=== PATIENT | male | born 1945 | race Caucasian/White ===

== ENCOUNTER 2023-02-08 11:44 | Emergency (ER) | payer MEDICARE, OTHER ==
[2023-02-08] MEDS ORDERED: HYDROcodone/Acetaminophen 5/325 mg Tablet ONE ×2 (12:26→17:50)
[2023-02-08 12:38] LABS: #Basophils 0.1 thou/uL (0.0-0.2); #Eosinphils 0.5 thou/uL (0.0-0.7); #Lymphocytes 2.2 thou/uL (1.20-3.40); #Monocytes 0.9 thou/uL (0.11-0.59); %Basophils 1.4 % (0.0-1.0); %Monocytes 9.3 % (0.0-10.0); %Neutrophils 61.3 % (42.0-75.0); Hematocrit 46.6 % (42.0-52.0); Hemoglobin 15.4 g/dL (14.0-18.0); Mean Corpuscular Hemoglobin 31.9 pg (27.0-31.0); Mean Corpuscular Volume 96.7 fl (78.0-98.0); Mean Platelet Volume 9.4 fL (7.4-10.4); Platelet Count 125 10x3/uL (130-400); RBC Distribution Width 12.2 % (11.5-14.5); Red Blood Cell (RBC) Count 4.82 mill/uL (4.70-6.10); White Blood Cell (WBC) Count 9.7 10x3/uL (4.8-10.8)
[2023-02-08] MEDS ORDERED: Piperacillin/Tazobactam 3.375 GM VIAL ONE (12:43)
[2023-02-08] MEDS ORDERED: Sodium Chloride 0.9% 250 ML 250 ML ONE (12:43)
[2023-02-08] MEDS ORDERED: Vancomycin 1 GM VIAL ONE (12:43)
[2023-02-08] MEDS ORDERED: Sodium Chloride 0.9% 100 ML ONE (12:43)
[2023-02-08 12:57] LABS: ALT (SGPT) Less than 7 U/L (8-55); AST (SGOT) 11 U/L (5-34); Albumin 4.2 g/dL (3.4-4.8); Alkaline Phosphatase 101 U/L (40-110); Anion Gap 15 mmol/L (10-20); BUN (Urea Nitrogen) 8 mg/dL (8.4-25.7); Bilirubin, Total 1.2 mg/dL (0.2-1.2); Calc. Creatinine Clearance 0 mL/min (70-130); Carbon Dioxide 21 mmol/L (23-31); Chloride 108 mmol/L (98-107); Estimated GFR 93; Globulin 3.1 g/dL (2.4-3.5); Glucose 85 mg/dL (83-110); Potassium 3.6 mmol/L (3.5-5.1); Protein, Total 7.3 g/dL (5.8-8.1); Sodium 140 mmol/L (136-145)
[2023-02-08] MEDS ORDERED: Lidocaine 1% (PF) 30 ML VIAL ONE (13:26)
== END 2023-02-08 17:53 | disposition short-term general hospital (02) ==
LOC: MADERS 11:44
DX: S63.280A Dislocation of proximal interphalangeal joint of right index finger, initial encounter (principal); F17.210 Nicotine dependence, cigarettes, uncomplicated; W23.0XXA Caught, crushed, jammed, or pinched between moving objects, initial encounter
CPT/HCPCS: 26770; 70450; 80053; 83605; 84145; 85025; 85652; 86140; 87040; 96365; 96367; J2001; J2543; J3370; J3490; J7050